=== PATIENT | male | born 1975 | race African-American/Black ===

== ENCOUNTER 2020-07-19 23:13 | Emergency (ER) | payer SELFPAY ==
[2020-07-19] MEDS ORDERED: HYDROcodone/Acetaminophen 5/325 mg Tablet ONE (23:41)
[2020-07-19] MEDS ORDERED: Bacitracin 1 PK ONE (23:57)
== END 2020-07-20 | disposition home or self-care (01) ==
LOC: ERS 23:13
DX: T23.601A Corrosion of second degree of right hand, unspecified site, initial encounter (principal); T32.0 Corrosions involving less than 10% of body surface
CPT/HCPCS: 99282

== ENCOUNTER 2020-08-09 16:25 | Emergency (ER) | payer SELFPAY | END 2020-08-09 16:55 | disposition home or self-care (01) | LOC: ERS 16:25 | DX: T23.261D Burn of second degree of back of right hand, subsequent encounter (principal); X58.XXXD Exposure to other specified factors, subsequent encounter | CPT/HCPCS: 99282 ==

== ENCOUNTER 2020-11-17 20:05 | Emergency (ER) | payer SELFPAY ==
[2020-11-17] MEDS ORDERED: Ketorolac Tromethamine 30 MG/ML VIAL ONE (20:20)
--- NOTE | 2020-11-17 20:50 | CT ---
Exam: CT cervical spine without contrast HISTORY: Trauma. Pain. COMPARISON: None FINDINGS: No craniocervical dissociation. Appropriate alignment of the lateral masses of C1 and C2. Intact odon toid process Appropriate alignment of the facets. Straightening of cervical lordosis is presumed to be due to patient position, muscle spasm or cervica l collar. Soft tissue neck structures: No mass, lymphadenopathy or hematoma. No prevertebral soft tissue swelli ng. Upper mediastinum and lung apices: Unremarkable Central spinal canal: Neural foramina and central spinal canal are patent. Evaluation is limited by t echnique Vertebral bodies: Cervical spine vertebral body height is maintained. No fracture. IMPRESSION: 1. No fracture 2. Straightening of cervical lordosis as above. If there is concern for ligamentous injury, consider MRI.
== END 2020-11-17 22:05 | disposition short-term general hospital (02) ==
LOC: ERS 20:05
DX: S16.1XXA Strain of muscle, fascia and tendon at neck level, initial encounter (principal); V89.2XXA Person injured in unspecified motor-vehicle accident, traffic, initial encounter
CPT/HCPCS: 72125; 96372; J1885

== ENCOUNTER 2021-01-17 17:03 | Emergency (ER) | payer SELFPAY ==
[2021-01-17] MEDS ORDERED: Fluorescein Opthalmic Strip ONE ×2 (17:45→17:46)
[2021-01-17] MEDS ORDERED: Proparacaine 0.5% Opth 15 ML BOT ONE (17:45)
== END 2021-01-17 18:20 | disposition home or self-care (01) ==
LOC: ERS 17:03
DX: H00.016 Hordeolum externum left eye, unspecified eyelid (principal)
CPT/HCPCS: 99283

== ENCOUNTER 2023-08-14 18:21 | Emergency (ER) | payer SELFPAY | END 2023-08-14 20:28 | disposition home or self-care (01) | LOC: ERS 18:21 | DX: L98.499 Non-pressure chronic ulcer of skin of other sites with unspecified severity (principal); F17.200 Nicotine dependence, unspecified, uncomplicated | CPT/HCPCS: 99283 ==

== ENCOUNTER 2024-05-01 18:01 | Emergency (ER) | payer OTHER, SELFPAY ==
[~2024-05-01 18:01] MED LIST: Iopamidol-370 76% 500 ML MDV (1 ML CHARGE) ONE
[2024-05-01 18:26] LABS: #Basophils 0.03 10x3/uL (0.0-0.2); %Basophils 0.4 % (0.0-1.0); %Eosinophils 1.7 % (0.0-10.0); %Lymphocytes 27.7 % (21.0-51.0); %Monocytes 8.6 % (0.0-10.0); %Neutrophils 61.3 % (42.0-75.0); Mean Corpuscular HGB CONC 33.3 g/dL (32.0-36.0); Mean Corpuscular Hemoglobin 29.6 pg (27.0-31.0); Mean Corpuscular Volume 88.8 fL (78.0-98.0); Mean Platelet Volume 9.9 fL (7.4-10.4); Platelet Count 250 10x3/uL (130-400); RBC Distribution Width 13.8 % (11.5-14.5); Red Blood Cell (RBC) Count 5.07 mill/uL (4.70-6.10)
[2024-05-01 18:40] LABS: Lipase 26 U/L (8-78); Magnesium 2.1 mg/dL (1.6-2.6); PTT 23.9 sec (22.9-36.1)
[2024-05-01 18:41] LABS: ALT (SGPT) 18 U/L (8-55); AST (SGOT) 27 U/L (5-34); Acetaminophen Less than 10 mcg/mL (10.0-30.0); Alcohol Less than 10.0 mg/dL (Less than 10); Alkaline Phosphatase 44 U/L (40-110); Anion Gap 12 mmol/L (10-20); BUN (Urea Nitrogen) 12 mg/dL (8.9-20.6); Bilirubin, Total 0.5 mg/dL (0.2-1.2); Calc. Creatinine Clearance 0 mL/min (70-130); Calcium 9.3 mg/dL (7.8-10.44); Carbon Dioxide 19 mmol/L (22-29); Chloride 111 mmol/L (98-107); Estimated GFR 90; Globulin 3.2 g/dL (2.4-3.5); Glucose 94 mg/dL (70-105); Potassium 3.9 mmol/L (3.5-5.1); Protein, Total 7.2 g/dL (6.0-8.3); Salicylate Less than 8.0 mg/dL (15.0-30.0); Sodium 138 mmol/L (136-145)
[2024-05-01] MEDS ORDERED: Morphine 4 MG/ML VIAL ONE ×2 (19:59→23:06)
== END 2024-05-02 00:11 | disposition home or self-care (01) ==
LOC: ERS 18:01
DX: S31.811A Laceration without foreign body of right buttock, initial encounter (principal); S91.011A Laceration without foreign body, right ankle, initial encounter; S40.011A Contusion of right shoulder, initial encounter; V53.6XXA Passenger in pick-up truck or van injured in collision with car, pick-up truck or van in traffic accident, initial encounter
CPT/HCPCS: 36415; 70450; 71045; 71260; 72125; 74177; 80053; 80307; 83605; 83690; 83735; 85025; 85610; 85730; 93005; 96374; 96376; G0390; J2270